=== PATIENT | male | born 2000 | race Caucasian/White ===

== ENCOUNTER 2025-02-13 23:01 | Emergency (ER) | payer OTHER, SELFPAY ==
[2025-02-13 23:03] VITALS: BP 156/99; PULSE 121; RESP 18; TEMP 36.9; O2SAT 96; BMI 37.7
--- NOTE | 2025-02-13 23:13 | CT_ITS ---
PROCEDURE: CTA CHEST W/WO CONTRAST 02/13/2025 REASON FOR EXAM: DYSPNEA, ELEVATED HEART RATE, CHEST PAIN TECHNIQUE: CTA CHEST W/WO CONTRAST Multiplanar Sagittal and Coronal images were obtained. CONTRAST: Isovue 370 VOLUME: 100 mL One or more dose reduction techniques were used (e.g., Automated exposure control, adjustment of the mA and/or kV according to patient size, use of iterative reconstruction technique). RADIATION DOSE SUMMARY: CTDlvol: 28.50 and 15.83 mGy DLP: 552.91 mGycm COMPARISON: None. # of known CTs in the past 12 months: 0 # of known Cardiac Nuclear Medicine Studies in the past 12 months: 0 FINDINGS: Thoracic Aorta: Normal caliber. Heart: Normal size Pulmonary Vessels: Streak artifact other motion limits sensitivity, but no PE is seen. Hardware: No internal hardware Lymph nodes: No lymphadenopathy Lungs and Airways: Clear Pleura: No pleural effusions Upper Abdomen: No acute process in the upper abdomen. . Bones: No aggressive bony process CT/CTA Chest W/WO Contrast IMPRESSION: No pulmonary embolism detected. No acute process detected. Beam hardening artifact, other technical factors limit sensitivity of the exam. Reading Location: [facility]
--- NOTE | 2025-02-13 23:13 | EKG12_ITS ---
Test Reason : DYSRHYTHMIA Blood Pressure : */* mmHG Vent. Rate : 97 BPM Atrial Rate : 97 BPM P-R Int : 132 ms QRS Dur : 88 ms QT Int : 328 ms P-R-T Axes : 42 26 31 degrees QTcB Int : 416 ms Normal sinus rhythm Normal ECG Confirmed by CHRISTIAN HAWKINS, POONAM ([id number]), editorial writer EARLINE JASMINE ([id number]) on 02/14/2025 1:11:12 PM Referred By: Confirmed By: POONAM GONZALES MD
--- NOTE | 2025-02-13 23:14 | ED.VIS.CHEST ---
HPI History of Present Illness Chief Complaint: Chest Other Narrative Narrative: 25-year-old male who denies significant medical history presents with his girlfriend because of left-sided chest pain/rib pain and left shoulder pain that he has had constantly for the last 24 hours. 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 It hurts more when he tries to breathe or breathe deeply. He denies any leg swelling. No DVT or PE risk factors. States his pain has been constant for about a day. No fevers or chills, no cough, no nausea or vomiting, no diaphoresis. PFSH PFSH Medical History no medical history Home Medications ?Medication ?Instructions ?Recorded ?Last Taken ?Type NK 02/13/25 Unknown History hydrocodone-acetaminophen 5-325mg 1 tab PO Q6H PRN pain 3 days #10 02/14/25 Unknown Rx 5mg-325mg tabs naproxen 500 mg tablet (Naprosyn) 500 mg PO BID PRN pain #20 tabs 02/14/25 Unknown Rx Allergy/AdvReac Type Severity Reaction Status Date / Time No Known Allergies Allergy Verified 02/13/25 23:06 Family History no significant family his Surgical History no surgical history Social History Smoking Status: Current every day smoker tobacco type: smokeless tobacco ROS ROS ED ROS Narrative Review of systems positive for left-sided rib pain and chest wall pain, left shoulder pain on the top of his shoulder. No fevers or chills, no cough, no nausea or vomiting. Positive pleuritic pain. No diaphoresis. No other exacerbating or alleviating factors. EXAM Physical Exam Narrative Exam Narrative: Afebrile. Vital signs noted. Nontoxic-appearing. No crepitance of the left shoulder or chest wall. Cardiovascular examination reveals a regular tachycardia. Mild reproducible chest pain left chest wall. Lungs are clear to auscultation bilaterally. The abdomen is soft and nontender with positive bowel sounds. No pedal edema appreciated. Neurological examination nonfocal, nonlateralizing, ambulatory in ED. Const Vital Signs: 02/13/25 23:03 02/13/25 23:10 02/13/25 23:32 Temperature 98.4 F Temperature Source Temporal Pulse Rate 121 H Respiratory Rate 18 Respiratory Effort Normal Non-Labored Respiratory Pattern Normal Blood Pressure 156/99 H Blood Pressure Mean 118 Pulse Ox 96 100 Oxygen Delivery Method Room Air Room Air MDM MDM MDM Narrative Medical decision making narrative: The differential diagnosis includes but not limited to chest wall pain versus pulmonary embolism versus pleurisy versus pneumonia versus pneumothorax. History and physical does not support pneumonia or pneumothorax as he does not have a cough or fever, and he does have equal breath sounds with pulse ox 96% on room air. Patient was administered morphine for analgesia. I do feel that CTA of the chest is indicated to rule out any lung pathology and pulmonary embolism. I do feel that an EKG can help rule out ACS. He has had greater than 6 hours of constant pain. EKG was obtained and interpreted by myself independently as normal sinus rhythm at 97 bpm without ectopy or acute ST changes. No STEMI. I reviewed his laboratory work and he has a normal white count at 10.6 with hemoglobin 16.2, hematocrit 45.3, platelet count 267. Electrolyte panel is grossly unremarkable with glucose elevated at 122 and normal anion gap of 12. I reviewed the radiology report of the CTA of the chest and there is no pulmonary embolism, no acute process. Upon repeat examination, he states he only feels slightly improved. I will administer Toradol 15 mg intravenously and writing prescriptions for a few tablets of Vicodin for breakthrough pain and an anti-inflammatory. While I am unsure as to the cause of his pleuritic pain, it may be more musculoskeletal in nature, I do feel he can be discharged safely home with follow-up. He was referred to a primary care provider. Return instructions to the emergency department were reviewed. Disposition is discharged home in stable condition. History & Record Review Discussion w/independent historian: Patient Lab Data Attestation: I reviewed the patient's lab results. Labs: Laboratory Results - last 24 hr 02/13/25 23:25 WBC 10.6 RBC 4.99 Hgb 16.2 Hct 45.3 MCV 90.8 MCH 32.5 H MCHC 35.8 RDW Std Deviation 39.8 RDW Coeff of Anthony 12.2 Plt Count 267 MPV 10.2 Immature Gran % (Auto) 0.200 Neut % (Auto) 70.4 H Lymph % (Auto) 21.5 Hale % (Auto) 5.8 Eos % (Auto) 1.8 Baso % (Auto) 0.3 Absolute Neuts (auto) 7.5 Absolute Lymphs (auto) 2.28 Nucleated RBC % 0 Sodium 141 Potassium 3.9 Chloride 104 Carbon Dioxide 24.4 Anion Gap 12 BUN 12 Creatinine 1.08 Estim Creat Clear Calc 146.36 Est GFR (MDRD) Non-Af 97 BUN/Creatinine Ratio 11.1 Glucose 122 H Calcium 9.4 Radiography Diagnostic Testing: Clinical Impression(s) from Imaging Studies Chest CTA 02/13/25 23:13 IMPRESSION: No pulmonary embolism detected. No acute process detected. Beam hardening artifact, other technical factors limit sensitivity of the exam. Reading Location[facility] Discharge Plan Triage Chief Complaint: Chest Other ED Provider: Homar Horowitz Dx/Rx/DC Orders Clinical Impression: Pleuritic chest pain, Left shoulder pain Instructions: ED Chest Pain, Uncertain Cause, ED Pleurisy, ED Shoulder Pain, Uncertain Cause Prescriptions: New naproxen [Naprosyn] 500 mg tablet 500 mg PO BID PRN (Reason: pain) Qty: 20 0RF hydrocodone-acetaminophen 5-325 mg tablet 1 tab PO Q6H PRN (Reason: pain) 3 Days Qty: 10 0RF No Action NK Primary Care Provider: Care Physician,No Primary Referrals: Jovani Reyes MD [Med Staff - [employer] Machine Operator] - As soon as possible Care Physician,No Primary [Primary Care Provider] - Activity Restrictions/Additional Instructions: Medication as directed. Return with fever, increased pain, new or worsening symptoms. Follow-up with your primary care provider. Print Language: Luxembourgish Disposition Disposition: Home, Self Care
--- NOTE | 2025-02-13 23:22 | PCA ---
no old ekg
[2025-02-13] MEDS: 0.9% Normal Saline (1000mL) 1,000 ML 999 ML IV (23:29)
[2025-02-13 23:32] VITALS: O2SAT 100
[2025-02-13 23:32] LABS: Hematocrit 45.3 % (40-54); Hemoglobin 16.2 g/dL (13.0-16.5); Immature Granulocytes Count 0.020 X10^3/uL (0.0-0.0); Mean Corp Hgb Conc 35.8 g/dL (32-36); Mean Corpuscular Volume 90.8 fL (80-94); Mean Platelet Vol. 10.2 fl (6.2-12.0); NRBC Flagged by Analyzer 0 % (0-5); Platelet Count 267 K/mm3 (150-450); RBC Distribution Width CV 12.2 % (11.6-14.6); RBC Distribution Width SD 39.8 fl (35.1-43.9); Red Blood Count 4.99 M/mm3 (4.6-6.2); White Blood Count 10.6 K/mm3 (4.4-11.0)
[2025-02-14 00:06] LABS: Anion Gap 12 (5-15); BUN 12 mg/dL (4-19); BUN/Creat Ratio 11.1 RATIO (10-20); Calcium,Total 9.4 mg/dL (7.6-11.0); Carbon Dioxide 24.4 mmol/L (21.0-32.0); Chloride 104 mmol/L (98-108); Estimated Creatinine Clearance 146.36 ml/min (50-250); Glucose 122 mg/dL (70-99); Potassium 3.9 mmol/L (3.3-5.1)
--- OUTSIDE RECORDS SUMMARY | 2025-02-14 00:13 | XMS RPT_ITS | CCD ---
Author Organization [facility] Care Team Providers Care Domain Architect Name Role Phone Oswald HAWKINS, Rogelio Mahoney Primary Care Provider Problems Problem Classification Problem Date Documented Da te Episodic/Chronic Other upper respiratory infections (1 source) Viral upper respiratory tract infection; Translations: [Acute upper respiratory infection, unspecified] 08-06-2023 Episodic Encounters Encounter Date Encounter Type Care Provider Facility Start: 08-06-2023 End: 08-06-2023 ambulatory ROGELIO DAVIS Facility:[facility] Start: 08-06-2023 End: 08-06-2023 ambulatory Aiyana Master MAURICE Work Phone: Telemedicine Comment on above: Viral URI with cough (Primary Dx) Start: 08-06-2023 End: 08-06-2023 Telemedicine consultation with patient Aiyana Master MAURICE Work Phone: [facility] Plan of Treatment Date Care Activity Detail Author Start: 06-23-2023 Depression Assessment Depression Ass essment [facility] Start: 02-21-2023 Covid-19 Vaccine ( season) Covid-19 Vaccine ( season) [facility] Start: 02-21-2023 Influenza vaccination Influenza Vacc ine (#1) [facility] Start: 03-29-2020 Urine microalbumin profile DTa P,Tdap,Td Vaccine (7 - Td or Tdap) [facility] Start: 2017 Hepatitis C screening Hepatitis C Sc lise [facility] Start: 2017 HIV screening HIV Screening [facility] Start: 2013 Peds To Adult Transi tion Annual Assessment Peds To Adult Transition Annual Assessment [facility] Start: 2011 Peds To Adult Transi tion Initial Discussion Peds To Adult Transition Initial Discussion [facility] Immunizations Immunization Date Immunization Notes Care Provider Jessa garcía 03-02-2016 influenza virus vacc ine, unspecified formulation Aiyana Diaz APRN.MERCH[employer]ISER RETAIL REPRESENTATIVE Work Phone: [facility] Payers Date Payer Category Payer Private Health Insurance [employer] A ETNA HMO JACQUELINE [id number] 2022-Present [phone] [address] [address] [place] [address] O [id number] 2022 Private Health Insurance [id number] Social History Date Type Detail Facility [facility]: [facility] Start: 04-15-2023 Tobacco use and exposure Smoke less tobacco non-user [facility] Start: 08-06-2023 Alcohol intake Current drinke r of alcohol (finding) [facility] Start: 04-15-2023 End: 04-16-2023 History of Social function [facility] Start: 04-15-2023 End: 04-16-2023 Tobacco use panel [facility] National Score (1-10 0), lower number is lower risk 19 [facility] Start: 04-15-2023 Alcohol Comment socially [facility] Start: 1999 Sex Assigned At Not on file [facility] Progress note 08-06-2023 Note Date & Type Note Facility 08-06-2023 Note HNO ID: [id number] Author: AIYANA DIAZ APRN.CNP Service: ? Author Type: Nurse Practitioner Type: Progress Notes Filed: 08/06/2023 12:42 Note Text: Telemedicine Visit - Distance Health Virtual Visit Note Patient seen on [employer] Video Visit platform. Location of patient: [place] I have communicated my name and active licensure. The patient's identity and physical location were verified at the time of this visit. 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 History of Present Illness Zaid Davis is a 23 year old male who presents for the past 2 days with symptoms that are:stable. Symptoms include: Positive for Cough, Nasal congestion, Rhinorrhea, Sore throat, Fatigue, and Diarrhea, Negative for Fever, Chills/Sweats, SOB, MAYORGA, Face pain/pressure, Headache, Otalgia, Nausea, and Emesis; patient reports 2 episodes of diarrhea in past 48 hours. Oral intake: Adequate Tobacco use: No Sick contacts: Unknown Recent travel: Denies OTC meds/remedies that patient has tried: Aspirin with minimal relief; History reviewed. No pertinent past medical history. PAST SURGICAL HISTORY Procedure Laterality Date EYE SURGERY HX Left 2002 Eye muscular surgery No family history on file. Social History Tobacco Use Smoking status: Never Smokeless tobacco: Never Vaping Use Vaping Use: Former Quit date: 01/15/2023 Substance Use Topics Alcohol use: Yes Comment: socially Drug use: Never No current outpatient medications on file. No current facility-administered medications for this visit. ALLERGIES No Known Allergies Video Exam (Examination performed via Video enabled technology) General appearance: Alert, oriented, pleasant, in NAD :Yes Ill appearing :No Lethargic appearing :No Eyes: Sclera clear :Yes Conjunctiva without erythema :Yes Ears: Tragus / outer ear tenderness by self palpation :No Oropharynx: Moist mucous membranes Frontal sinus tenderness by self palpation;No Maxillary sinus tenderness by self palpation :No Tender cervical adenopathy by self palpation :No Respiratory distress :No Coughing noted :No Audible wheezing noted :No ASSESSMENT/PLAN: 1. Viral URI with cough - ICD9: 465.9, ICD10: J06.9 - Discussed viral etiology and rationale for treatment - Symptomatic treatment with prn analgesia - Supportive care with fluids and rest - Recommend use of guaifenesin, per package instructions - Follow up with PCP (or available in-person care) in 1 week if symptoms persist or sooner if symptoms worsen - Red flags discussed for need for in person care - All questions answered Aiyana Diaz APRN.SANDRA If you let us know who your primary care provider is, we will send them a notification of today?s visit through our electronic medical records system. Since not all providers have access to our notifications, we strongly encourage you to share the following record of today?s visit with your primary care provider at your next visit. This will help in providing you the best care. If you do not have an established Primary Care physician and would like to continue care with a [facility] Virtual Primary Care physician, please ask your provider to place a Establish Primary Care order. Use [facility] to manage your care, wherever you are, 13/01, on your mobile device or computer. [facility] connects you to [facility]? so you can access all your health information in one place and also schedule and request virtual appointments with primary care providers. [facility] Instructions 08-06-2023 Patient Instructions Note Date & Type Note Facility 08-06-2023 Instructions Aiyana Diaz APRN.SANDRA - 08/06/2023 12:41 PM EST Viral Upper Respiratory Infection Supportive Therapies: - Plenty of fluids - Plenty of REST - Steam, humidifier - Expect slow improvement over the next week - Use salt water gargles, cough drops or throat sprays to relieve throat discomfort - Use saline nose drops or spray to help ease congestion Immediate medical attention for: - Fever higher than 102 F (38.9 C), not lowered by acetaminophen and/or ibuprofen - Sudden and severe pain in the face and head - Trouble seeing or seeing double - Trouble thinking clearly - Swelling or redness around one or both eyes - A stiff neck - Chest pains or difficulty breathing - Drooling, difficulty swallowing - Follow up with PCP (or available in-person care) in 1 week if symptoms persist or sooner if symptoms worsen documented in this encounter [facility] History of Present illness Narrative 08-06-2023 Aiyana Diaz APRN.SANDRA - 08/06/2023 12:30 PM EST Note Date & Type Note Facility 08-06-2023 History of Presen t illness Narrative Telemedicine Visit - Distance Health Virtual Visit Note Patient seen on [employer] Video Visit platform. Location of patient: [place] I have communicated my name and active licensure. The patient's identity and physical location were verified at the time of this visit. 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 History of Present Illness Zaid Davis is a 23 year old male who presents for the past 2 days with symptoms that are:stable. Symptoms include: Positive for Cough, Nasal congestion, Rhinorrhea, Sore throat, Fatigue, and Diarrhea, Negative for Fever, Chills/Sweats, SOB, MAYORGA, Face pain/pressure, Headache, Otalgia, Nausea, and Emesis; patient reports 2 episodes of diarrhea in past 48 hours. Oral intake: Adequate Tobacco use: No Sick contacts: Unknown Recent travel: Denies OTC meds/remedies that patient has tried: Aspirin with minimal relief; History reviewed. No pertinent past medical history. PAST SURGICAL HISTORY Procedure Laterality Date EYE SURGERY HX Left 2002 Eye muscular surgery No family history on file. Social History Tobacco Use Smoking status: Never Smokeless tobacco: Never Vaping Use Vaping Use: Former Quit date: 01/15/2023 Substance Use Topics Alcohol use: Yes Comment: socially Drug use: Never No current outpatient medications on file. No current facility-administered medications for this visit. ALLERGIES No Known Allergies Video Exam (Examination performed via Video enabled technology) General appearance: Alert, oriented, pleasant, in NAD :Yes Ill appearing :No Lethargic appearing :No Eyes: Sclera clear :Yes Conjunctiva without erythema :Yes Ears: Tragus / outer ear tenderness by self palpation :No Oropharynx: Moist mucous membranes Frontal sinus tenderness by self palpation;No Maxillary sinus tenderness by self palpation :No Tender cervical adenopathy by self palpation :No Respiratory distress :No Coughing noted :No Audible wheezing noted :No ASSESSMENT/PLAN: 1. Viral URI with cough - ICD9: 465.9, ICD10: J06.9 - Discussed viral etiology and rationale for treatment - Symptomatic treatment with prn analgesia - Supportive care with fluids and rest - Recommend use of guaifenesin, per package instructions - Follow up with PCP (or available in-person care) in 1 week if symptoms persist or sooner if symptoms worsen - Red flags discussed for need for in person care - All questions answered Aiyana Diaz APRN.MERCH[employer]IS[employer] RETAIL REPRESENTATIVE If you let us know who your primary care provider is, we will send them a notification of today s visit through our electronic medical records system. Since not all providers have access to our notifications, we strongly encourage you to share the following record of today s visit with your primary care provider at your next visit. This will help in providing you the best care. If you do not have an established Primary Care physician and would like to continue care with a [facility] Virtual Primary Care physician, please ask your provider to place a Establish Primary Care order. Use [employer] to manage your care, wherever you are, 13/01, on your mobile device or computer. [employer] connects you to [employer] so you can access all your health information in one place and also schedule and request virtual appointments with primary care providers. documented in this encounter [facility] Evaluation note Note Date & Type Note Facility Evaluation note Diagnosis Viral URI with cough- Primary Acute upper respiratory infections of unspecified site documented in this encounter [facility] Summary Purpose Family History No Family History Records Found Advance Directives No Advanced Directives Records Found Additional Source Comments Source Comments (unrecognize d section and content) In the event this informatio n is protected by the Federal Confidentiality of Alcohol and Drug Abuse Patient Records regulations: The Federal rules restrict any use of the information to criminally investigate or prosecute any alcohol or drug abuse patient.[facility] Reason for Visit (unrecogniz ed section and content) Reason Comments Upper Respiratory Infection Care Teams (unrecognized sec tion and content) Domain Architect Relationship Specialty Start Date End Date Rogelio Davis MD [address] [place] [address] [address] [address] PCP - General Family Medicine 04/15/23 (unrecognized sect ion and content) No Status Records Found INFORMATION SOURCE (unrecogn ized section and content) DATE CREATED AUTHOR 08/08/2023 [facility] FOR RECORDS PERTAINING TO PATIENTS WHO ARE OR HAVE BEEN ENROLLED IN A CHEMICAL DEPENDENCY/SUBSTANCEABUSE PROGRAM, SOME INFORMATION MAY BE OMITTED. This clinical summary was aggregated from multiple sources. Caution should be exercised in using it in the provision of clinical care. This summary normalizes information from multiple sources, and as a consequence, information in this document may materially change the coding, format and clinical context of patient data. In addition, data may be omitted in some cases. CLINICAL DECISIONS SHOULD BE BASED ON THE PRIMARY CLINICAL RECORDS. [facility] [employer] [facility]. provides no warranty or guarantee of the accuracy or completeness of information in this document.
[2025-02-14 00:31] VITALS: BP 106/68; PULSE 97; RESP 18; TEMP 36.6; O2SAT 99
== END 2025-02-14 00:33 | disposition home or self-care (01) ==
PROVIDERS: Emergency Provider Emergency Medicine; Visit Provider Emergency Medicine
DX: R07.82 Intercostal pain (principal); M25.512 Pain in left shoulder; F17.220 Nicotine dependence, chewing tobacco, uncomplicated
CPT/HCPCS: 71275; 80048; 85025; 93005; 96361; 96374; 96375; 99284; Q9967; A4216; J2405